=== PATIENT | female | born 1950 | race Caucasian/White ===

== ENCOUNTER → 2019-08-29 | Outpatient (CLI) | payer MEDICARE | END | disposition home or self-care (01) | LOC: EDUNIT# 08:00 → SHCH 08:28 | PROVIDERS: ATTEND Internal Medicine Cardiovascular Disease | DX: I11.9 Hypertensive heart disease without heart failure (principal); I87.2 Venous insufficiency (chronic) (peripheral) ==

== ENCOUNTER → 2019-08-29 | Outpatient (CLI) | payer OTHER | END | disposition home or self-care (01) | LOC: RAH 08:30 | PROVIDERS: ATTEND Internal Medicine Cardiovascular Disease | DX: Z13.6 Encounter for screening for cardiovascular disorders (principal); K74.60 Unspecified cirrhosis of liver | CPT/HCPCS: 75571 ==

== ENCOUNTER → 2019-11-09 | Outpatient (CLI) | payer MEDICARE ==
[~2019-11-09] MED LIST: ALBUMIN (HUMAN) 25% 200 ML IV SCH
[2019-11-09 10:40] LABS: HEMATOCRIT 25.8 % (36-48); MEAN CORPUSCULAR HEMOGLOBIN 35.7 pg (27.0-33.0); MEAN CORPUSCULAR HGB CONC 33.3 g/dL (32.0-36.0); MEAN CORPUSCULAR VOLUME 107.1 fL (79-99); PLATELET COUNT (AUTO) 141 K/uL (130-400); RED BLOOD CELL COUNT(AUTO) 2.41 MIL/uL (4.00-5.50); RED CELL DISTRIBUTION WIDTH 17.4 % (11.0-15.5)
[2019-11-09 10:54] LABS: INR 1.18 (0.85-1.15); PARTIAL THROMBOPLASTIN TIME 30.1 SEC (26.3-35.5); PROTHROMBIN TIME 12.7 SEC (9.6-11.6)
[2019-11-09 10:55] LABS: ALBUMIN 1.4 g/dL (3.5-5.0); BILIRUBIN,TOTAL 1.3 mg/dL (0.2-1.0); CREATININE 3.3 mg/dL (0.5-1.5); POTASSIUM 4.7 mmol/L (3.5-5.1); TOTAL PROTEIN, SERUM 6.9 g/dL (6.0-8.3)
--- NOTE | 2019-11-09 11:55 | NUR ---
U/S GUIDED PARACENTESIS PROCEDURE PERFORMED BY DR. OBRIEN. PUNCTURE SITE LEFT LOWER QUADRANT AND PATIENT TOLERATED PROCEDURE WELL. TOTAL REMOVED 11.0 LITERS OF YELLOW CLOUDY ASCITES FLUID. END OF PROCEDURE AT 1235. CATHETER REMOVED AND DRESSING APPLIED. NO BLEEDING NOTED. ALBUMIN 25% 50 GRAMS GIVEN IV PER ALBUMIN PROTOCOL. RIGHT FOREARM PIV DC'D, BANDAID APPLIED, DRESSING DRY AND INTACT. DISCHARGE INSTRUCTIONS GIVEN TO PATIENT. PATIENT VERBALIZED UNDERSTANDING. PT DISCHARGED VIA W/C @ 1315. PT STABLE, AAO X 3 WITH NO C/O PAIN.
[2019-11-09 13:00] LABS: BAND NEUTROPHILS % (MANUAL) 2 % (0-2); EOSINOPHILS % (MANUAL) 16 % (1-6); LYMPHOCYTES % (MANUAL) 51 % (22-44); MAN.DIFF COMMENT-IMPRESSION MANUAL DIFFERENTIAL; MONOCYTES % (MANUAL) 14 % (2-9); SEGMENTED NEUTROPHILS % 17 % (40-70)
[2019-11-09 13:01] LABS: PLATELET MORPHOLOGY COMMENT ADEQUATE
[2019-11-09 15:32] LABS: ALBUMIN,BODY FLUID < 0.6 g/dL
[2019-11-09 15:47] LABS: APPEARANCE BODY FLUID CLEAR (CLEAR); COLOR,BODY FLUID LT YELLOW (LT YELLOW); SPECIMENTYPE,BODY FLUID ASCITES
[2019-11-09 15:48] LABS: BODY FLUID RBC 11 /cu. mm.; BODY FLUID WBC 22 /cu. mm.; TOTAL VOLUME,BODY FLUID 1100 mL
[2019-11-09 16:07] LABS: BF LYMPHOCYTE 27 %; BF MESOTHELIAL 67 %
== END ==
LOC: RAH 09:41
PROVIDERS: ATTEND Internal Medicine Gastroenterology
DX: R18.8 Other ascites (principal); K74.60 Unspecified cirrhosis of liver; E11.22 Type 2 diabetes mellitus with diabetic chronic kidney disease; I13.2 Hypertensive heart and chronic kidney disease with heart failure and with stage 5 chronic kidney disease, or end stage renal disease; I50.9 Heart failure, unspecified; N18.6 End stage renal disease; E78.5 Hyperlipidemia, unspecified; F41.9 Anxiety disorder, unspecified; F32.9 Major depressive disorder, single episode, unspecified; Z90.49 Acquired absence of other specified parts of digestive tract; Z98.890 Other specified postprocedural states; Z72.89 Other problems related to lifestyle; Z88.8 Allergy status to other drugs, medicaments and biological substances; Z79.01 Long term (current) use of anticoagulants; Z86.010 Personal history of colon polyps; Z87.19 Personal history of other diseases of the digestive system; Z87.891 Personal history of nicotine dependence; Z99.2 Dependence on renal dialysis; Z83.3 Family history of diabetes mellitus; Z80.0 Family history of malignant neoplasm of digestive organs; Z82.49 Family history of ischemic heart disease and other diseases of the circulatory system
CPT/HCPCS: 36415; 49083; 80053; 82042; 84157; 85025; 85610; 85730; 87071; 87205; 89051; A4215; P9046; 96365

== ENCOUNTER → 2019-11-29 | Outpatient (CLI) | payer MEDICARE ==
--- NOTE | 2019-11-29 10:20 | NUR ---
U/S GUIDED PARACENTESIS PROCEDURE PERFORMED BY DR. RICCI PUNCTURE SITE LLQ AND PATIENT TOLERATED PROCEDURE WELL. TOTAL REMOVED ___10.3 LITERS OF CLOUDY YELLOW ASCITES FLUID .END OF PROCEDURE AT _1110____.CATHETER REMOVED AND DRESSING APPLIED. NO BLEEDING NOTED. ALBUMIN 25% 50 GRAMS GIVEN IV PER ALBUMIN PROTOCOL. PIV DCD, BANDAID APPLIED, NO BLEEDING NOTED. DISCHARGE INSTRUCTION GIVEN TO PATIENT AND VERBALIZED UNDERSTANDING. DISCHARGED VIA __WC___. AAO X 3 WITH NO C/O PAIN.
[2019-11-29 12:58] LABS: BF BASOPHIL 5 %; BF EOSINOPHIL 2 %; BF LYMPHOCYTE 44 %; BF MESOTHELIAL 26 %; BF MONOCYTE 20 %
[2019-11-29 12:59] LABS: APPEARANCE BODY FLUID CLEAR (CLEAR); BODY FLUID WBC 197 /cu. mm.; COLOR,BODY FLUID YELLOW (LT YELLOW); SPECIMENTYPE,BODY FLUID ASCITES; TOTAL VOLUME,BODY FLUID 10300 mL
[2019-11-29 13:00] LABS: BODY FLUID RBC 64 /cu. mm.
== END | disposition home or self-care (01) ==
LOC: RAH 08:39
PROVIDERS: ATTEND Internal Medicine Gastroenterology
DX: R18.8 Other ascites (principal)
CPT/HCPCS: 49083; 87071; 87205; 89051; 96365; A4215; P9046

== ENCOUNTER → 2019-12-06 | Outpatient (CLI) | payer MEDICARE ==
--- NOTE | 2019-12-06 09:35 | NUR ---
U/S GUIDED PARACENTESIS PROCEDURE PERFORMED BY PUNCTURE SITE LEFT LOWER QUADRANT AND PATIENT TOLERATED PROCEDURE WELL. TOTAL REMOVED 8.6 LITERS OF YELLOW CLEAR ASCITES FLUID. END OF PROCEDURE AT 1015 CATHETER REMOVED AND DRESSING APPLIED. NO BLEEDING NOTED. ALBUMIN 25% 50 GRAMS GIVEN IV PER ALBUMIN PROTOCOL. RIGHT WRIST PIV DC'D, BANDAID APPLIED, DRESSING DRY AND INTACT. DISCHARGE INSTRUCTIONS GIVEN TO PATIENT. PATIENT VERBALIZED UNDERSTANDING. PT DISCHARGED VIA W/C @ 1040 PT STABLE, AAO X 3 WITH NO C/O PAIN.
--- NOTE | 2019-12-06 09:35 | NUR ---
US GUIDED PARACENTESIS SPECIMEN SEND TO LAB
[2019-12-06 12:20] LABS: APPEARANCE BODY FLUID CLEAR (CLEAR); BODY FLUID RBC 11 /cu. mm.; BODY FLUID WBC 52 /cu. mm.; COLOR,BODY FLUID YELLOW (LT YELLOW); SPECIMENTYPE,BODY FLUID ASCITES; TOTAL VOLUME,BODY FLUID 8600 mL
[2019-12-06 12:39] LABS: BF EOSINOPHIL 2 %; BF LYMPHOCYTE 23 %; BF MESOTHELIAL 61 %; BF MONOCYTE 9 %
== END ==
LOC: RAH 08:09
PROVIDERS: ATTEND Internal Medicine Gastroenterology
DX: R18.8 Other ascites (principal)
CPT/HCPCS: 49083; 87071; 87205; 89051; A4215; P9046; 96365

== ENCOUNTER → 2019-12-12 | Outpatient (CLI) | payer MEDICARE ==
--- NOTE | 2019-12-12 12:00 | NUR ---
U/S GUIDED PARACENTESIS PROCEDURE PERFORMED BY DR. Pato TAYLOR. PUNCTURE SITE RIGHT UPPER QUADRANT AND PATIENT TOLERATED PROCEDURE WELL. TOTAL REMOVED 6.7 LITERS OF YELLOW CLEAR ASCITES FLUID. END OF PROCEDURE AT 1015 CATHETER REMOVED AND DRESSING APPLIED. NO BLEEDING NOTED. ALBUMIN 25% 50 GRAMS GIVEN IV PER ALBUMIN PROTOCOL. RIGHT FOREARM PIV DC'D, BANDAID APPLIED, DRESSING DRY AND INTACT. DISCHARGE INSTRUCTIONS GIVEN TO PATIENT. PATIENT VERBALIZED UNDERSTANDING. PT DISCHARGED VIA W/C @ 1040 PT STABLE, AAO X 3 WITH NO C/O PAIN. SPECIMEN COLLECTED AND SENT TO LAB
[2019-12-12 14:03] LABS: APPEARANCE BODY FLUID CLEAR (CLEAR); BODY FLUID WBC 66 /cu. mm.; COLOR,BODY FLUID YELLOW (LT YELLOW); SPECIMENTYPE,BODY FLUID ASCITES
[2019-12-12 14:04] LABS: BODY FLUID RBC 10 /cu. mm.
[2019-12-12 14:06] LABS: BF LYMPHOCYTE 60 %; BF MONOCYTE 35 %
[2019-12-12 14:10] LABS: TOTAL VOLUME,BODY FLUID 6700 mL
== END ==
LOC: RAH 10:26
PROVIDERS: ATTEND Internal Medicine Gastroenterology
DX: R18.8 Other ascites (principal)
CPT/HCPCS: 49083; 87071; 87205; 89051; A4215; P9046; 96365

== ENCOUNTER → 2020-01-10 | Outpatient (CLI) | payer MEDICARE ==
[2020-01-10 09:01] LABS: BASOPHILS % (AUTO) 1.7 % (0.0-5.0); EOSINOPHILS % (AUTO) 14.7 % (0.0-8.0); HEMATOCRIT 24.1 % (36-48); LYMPHOCYTES % (AUTO) 29.9 % (21.0-51.0); MEAN CORPUSCULAR HEMOGLOBIN 35.6 pg (27.0-33.0); MEAN CORPUSCULAR HGB CONC 35.3 g/dL (32.0-36.0); MEAN CORPUSCULAR VOLUME 100.8 fL (79-99); MONOCYTES % (AUTO) 18.5 % (3.0-13.0); NEUTROPHILS % (AUTO) 34.9 % (40.0-77.0); PLATELET COUNT (AUTO) 250 K/uL (130-400); RED BLOOD CELL COUNT(AUTO) 2.39 MIL/uL (4.00-5.50); RED CELL DISTRIBUTION WIDTH 16.7 % (11.0-15.5); WHITE BLOOD COUNT (AUTO) 10.1 K/uL (4.8-10.8)
[2020-01-10 09:10] LABS: ALBUMIN 1.4 g/dL (3.5-5.0); BILIRUBIN,TOTAL 0.8 mg/dL (0.2-1.0); TOTAL PROTEIN, SERUM 7.5 g/dL (6.0-8.3)
[2020-01-10 09:19] LABS: CREATININE 9.6 mg/dL (0.5-1.5); INR 1.15 (0.85-1.15); PROTHROMBIN TIME 12.4 SEC (9.6-11.6)
--- NOTE | 2020-01-10 09:30 | NUR ---
U/S GUIDED PARACENTESIS PROCEDURE PERFORMED BY DR. GREENBERG. PUNCTURE SITE RIGHT LOWER QUADRANT AND PATIENT TOLERATED PROCEDURE WELL. TOTAL REMOVED 10.1 LITERS OF CLOUDY YELLOW FLUID. END OF PROCEDURE AT 1030. CATHETER REMOVED AND DRESSING APPLIED. NO BLEEDING NOTED. ALBUMIN 25% 50 GRAMS GIVEN IV PER ALBUMIN PROTOCOL. LEFT HAND PIV DC'D, BANDAID APPLIED, DRESSING DRY AND INTACT. REPORT GIVEN TO TIERA JACKSON AND PATIENT TRANSPORTED TO [facility] VIA W/C, VIA VAN. PT STABLE, AAO X 3 WITH NO C/O PAIN.
[2020-01-10 16:26] LABS: APPEARANCE BODY FLUID CLEAR (CLEAR); COLOR,BODY FLUID YELLOW (LT YELLOW); SPECIMENTYPE,BODY FLUID ASCITES
[2020-01-10 16:27] LABS: TOTAL VOLUME,BODY FLUID 10100 mL
[2020-01-10 16:40] LABS: BODY FLUID WBC 33 /cu. mm.
[2020-01-10 16:41] LABS: BODY FLUID RBC 8 /cu. mm.
[2020-01-10 17:50] LABS: BF EOSINOPHIL 1 %; BF LYMPHOCYTE 25 %; BF OTHER CELLS 8
== END ==
LOC: RAH 08:25
PROVIDERS: ATTEND Internal Medicine Gastroenterology
DX: R18.8 Other ascites (principal); K74.69 Other cirrhosis of liver; I85.01 Esophageal varices with bleeding; K29.50 Unspecified chronic gastritis without bleeding; F32.9 Major depressive disorder, single episode, unspecified; F41.9 Anxiety disorder, unspecified; I13.2 Hypertensive heart and chronic kidney disease with heart failure and with stage 5 chronic kidney disease, or end stage renal disease; E11.22 Type 2 diabetes mellitus with diabetic chronic kidney disease; N18.6 End stage renal disease; I50.9 Heart failure, unspecified; E78.5 Hyperlipidemia, unspecified; Z80.0 Family history of malignant neoplasm of digestive organs; Z79.899 Other long term (current) drug therapy
CPT/HCPCS: 36415; 49083; 80053; 85025; 85610; 87071; 87205; 89051; A4215; P9046; 96365